=== PATIENT | male | born 1985 | race Hispanic/Latino ===

== ENCOUNTER → 2018-06-28 | Outpatient (RCR) | payer OTHER ==
[~2018-06-28] MED LIST: CARISOPRODOL PO; DIAZEPAM5 MG PO; IBUPROFEN400 MG PO; MEDROL4 MG/DOSE- PO; NAPROXEN PO; NORCO 10-325 T1 EACH PO; NORCO 7.5-3251 EACH PO; ZYRTEC PO
== END ==
LOC: PT 06-24 08:29
PROVIDERS: ATTEND Neurological Surgery
DX: M51.37 Other intervertebral disc degeneration, lumbosacral region (principal)
CPT/HCPCS: 97110 ×2; 97162; G0283

== ENCOUNTER 2018-07-19 17:00 | Outpatient (RCR) | payer OTHER | END 2018-07-29 | LOC: PT 17:00 | PROVIDERS: ATTEND Neurological Surgery | DX: M51.37 Other intervertebral disc degeneration, lumbosacral region (principal) ==